=== PATIENT | male | born 1960 | race Caucasian/White ===

== ENCOUNTER 2017-04-08 08:20 | Outpatient (CLI) | payer OTHER ==
--- NOTE | 2017-04-08 11:14 | CT ---
CT ABDOMEN AND PELVIS WITH AND WITHOUT IV CONTRAST: HISTORY: Elevated PSA. FINDINGS: The lung bases are clear. The liver, spleen, pancreas, and adrenal glands are normal. No calcified gallstones are seen. No calculi are seen in the kidneys, ureters, or urinary bladder. No hydroureteronephrosis is noted o n either side. Post contrast imaging demonstrates no renal mass. There is normal contrast excretion into the ureters and urinary bladder. There is mild enlargement of the prostate gland. No free air, free fluid, or lymphadenopathy is seen in the abdomen or pelvis. There are vascular macario cifications without evidence of aneurysmal dilatation of the abdominal aorta. There is a normal appe aring appendix. A fat-containing right inguinal hernia is present. There are degenerative changes i n the spine. IMPRESSION: No CT evidence of urinary tract calculi/obstruction or renal mass. POS: [facility]
[2017-04-08] MEDS ORDERED: ISOVUE-370 76%-LOCM 1 ML ONE (12:18)
== END 2017-04-08 08:21 | disposition home or self-care (01) ==
LOC: CT 08:20
PROVIDERS: ATTEND Urology
DX: R97.20 Elevated prostate specific antigen [PSA] (principal); N32.89 Other specified disorders of bladder
CPT/HCPCS: 74178

== ENCOUNTER 2017-04-11 15:14 | Emergency (ER) | payer OTHER ==
[2017-04-11 15:52] LABS: #Eosinphils 0.2 thou/uL (0.0-0.7); #Lymphocytes 1.3 thou/uL (1.20-3.40); #Monocytes 0.5 thou/uL (0.11-0.59); #Neutrophils 4.7 thou/uL (1.40-6.50); %Basophils 0.6 % (0.0-1.0); %Eosinophils 3.6 % (0.0-10.0); %Neutrophils 69.9 % (42.0-75.0); Hemoglobin 14.4 g/dL (14.0-18.0); Mean Corpuscular HGB CONC 32.1 g/dL (32.0-36.0); Mean Corpuscular Hemoglobin 29.5 pg (27.0-31.0); Mean Corpuscular Volume 91.8 fl (80.0-94.0); Platelet Count 274 thou/uL (130-400); RBC Distribution Width 12.9 % (11.5-14.5); Red Blood Cell (RBC) Count 4.89 mill/uL (4.70-6.10); White Blood Cell (WBC) Count 6.8 thou/uL (4.8-10.8)
[2017-04-11 16:11] LABS: ALT (SGPT) 40 U/L (8-55); AST (SGOT) 35 U/L (5-34); Albumin 4.2 g/dL (3.5-5.0); Alkaline Phosphatase 94 U/L (40-150); Anion Gap 11 mmol/L (10-20); BUN (Urea Nitrogen) 9 mg/dL (8.4-25.7); Bilirubin, Total 0.6 mg/dL (0.2-1.2); Calc. Creatinine Clearance 0 mL/min (70-130); Calcium 9.4 mg/dL (7.8-10.44); Carbon Dioxide 29 mmol/L (22-29); Chloride 107 mmol/L (98-107); Estimated GFR-MDRD 83; Globulin 2.5 g/dL (2.4-3.5); Glucose 111 mg/dL (70-105); Potassium 4.3 mmol/L (3.5-5.1); Protein, Total 6.7 g/dL (6.0-8.3); Sodium 143 mmol/L (136-145)
[2017-04-11 16:16] LABS: CKMB 0.4 ng/mL (0-6.6); Troponin I Less than 0.010 ng/mL (< 0.028)
--- NOTE | 2017-04-13 15:06 | EKG ---
Test Reason : Blood Pressure : / mmHG Vent. Rate : 081 BPM Atrial Rate : 081 BPM P-R Int : 134 ms QRS Dur : 084 ms QT Int : 346 ms P-R-T Axes : 055 001 065 degrees QTc Int : 401 ms Normal sinus rhythm Normal ECG Confirmed by CHRISTEL GONZALES MD ([id number]), news video editor IRINA RIVERA ([id number]) on 04/13/2017 3:06:45 PM Referred By: Confirmed By:CHRISTEL GONZALES MD
== END 2017-04-11 16:47 | disposition home or self-care (01) ==
LOC: ERS 15:14
DX: R55 Syncope and collapse (principal); I10 Essential (primary) hypertension; E11.9 Type 2 diabetes mellitus without complications; E78.5 Hyperlipidemia, unspecified; J45.909 Unspecified asthma, uncomplicated; Z87.891 Personal history of nicotine dependence; Z79.899 Other long term (current) drug therapy
CPT/HCPCS: 80053; 82553; 84484; 85025; 93005

== ENCOUNTER 2017-08-20 10:54 | Outpatient (CLI) | payer BC ==
[2017-08-20 12:40] LABS: Bilirubin Negative (Negative); Blood, Urine Negative (Negative); Clarity CLEAR (Clear); Glucose, Urine (Dipstick) Negative (Negative); Hemoglobin 14.1 g/dL (14.0-18.0); Leukocyte Negative (Negative); Mean Corpuscular HGB CONC 32.7 g/dL (32.0-36.0); Mean Corpuscular Hemoglobin 30.7 pg (27.0-31.0); Mean Corpuscular Volume 93.8 fl (80.0-94.0); Mean Platelet Volume 7.1 fL (7.4-10.4); Nitrite Negative (Negative); Platelet Count 241 thou/uL (130-400); Protein, Urine (Dipstick) Negative (Neg-Trace); RBC Distribution Width 12.2 % (11.5-14.5); Red Blood Cell (RBC) Count 4.59 mill/uL (4.70-6.10); Specific Gravity, Urine 1.016 (1.002-1.036); Urobilinogen 0.2 mg/dL (0.2-1.0); White Blood Cell (WBC) Count 6.1 thou/uL (4.8-10.8); pH, Urine 5.5 (5.0-9.0)
[2017-08-20 12:46] LABS: Bacteria/HPF None Seen HPF (None Seen); Hyaline Casts/LPF 0-3 HYALINE CAST LPF (0-3 Hyaline); Pathc Cast-AUWi Flag 0.14 (0-2.49); RBC/HPF 0-3 HPF (0-3); Squamous Epithelial None Seen HPF (0-3); WBC/HPF 0-3 HPF (0-3)
[2017-08-20 12:52] LABS: INR-International Normal Ratio 1.1; PTT 33.6 SEC (22.9-36.1); Prothrombin Time 14.3 SEC (12.0-14.7)
[2017-08-20 13:02] LABS: ALT (SGPT) 43 U/L (8-55); AST (SGOT) 35 U/L (5-34); Albumin 4.3 g/dL (3.5-5.0); Alkaline Phosphatase 88 U/L (40-150); Anion Gap 11 mmol/L (10-20); BUN (Urea Nitrogen) 12 mg/dL (8.4-25.7); Bilirubin, Total 0.6 mg/dL (0.2-1.2); Calc. Creatinine Clearance 0 mL/min (70-130); Calcium 9.4 mg/dL (7.8-10.44); Carbon Dioxide 28 mmol/L (22-29); Chloride 107 mmol/L (98-107); Estimated GFR-MDRD 76; Globulin 2.2 g/dL (2.4-3.5); Glucose 95 mg/dL (70-105); Potassium 4.8 mmol/L (3.5-5.1); Protein, Total 6.5 g/dL (6.0-8.3); Sodium 141 mmol/L (136-145)
--- NOTE | 2017-08-20 13:14 | RAD ---
2 VIEWS CHEST: Date: 08/20/17 COMPARISON: 04/24/09. HISTORY: Evaluate chest prior to surgery. FINDINGS: There is no pneumothorax or pleural fluid, and no focal consolidation or alveolar edema. Heart and me diastinal contours are grossly unremarkable. IMPRESSION: No acute findings. POS: [facility]
== END 2017-08-20 10:55 | disposition home or self-care (01) ==
LOC: LABBT 10:54
PROVIDERS: ATTEND Urology
DX: Z01.818 Encounter for other preprocedural examination (principal); R97.20 Elevated prostate specific antigen [PSA]
CPT/HCPCS: 71046; 80053; 81001; 85027; 85610; 85730; 87086

== ENCOUNTER 2017-08-20 14:45 | Outpatient (CLI) | payer BC ==
[~2017-08-20 14:45] MED LIST: Gadobenate Dimeglumine 529 MG/1 ML (20ML VIAL) ONE
--- NOTE | 2017-08-20 16:43 | MRI ---
MRI OF PELVIS WITH AND WITHOUT IV CONTRAST (PROSTATE MRI): 08/20/17 HISTORY: 57-year-old male with recently diagnosed prostate cancer, Danyelle score 3+3=6 obtained. Needle biopsy demonstrates prostatic adenocarcinoma in the right mid lateral and right medial zones. COMPARISON: None. TECHNIQUE: Multiplanar and multisequence MRI of the pelvis was performed with and without IV contrast using the prostate protocol. Review at an independent 3D workstation was also performed. FINDINGS: PROSTATE: Prostate measures 5.8 x 3.6 x 4.7 cm with a volume of 51 mL. PERIPHERAL ZONE: There are no focal abnormal areas of diffusion restriction is seen to suggest a malignant process. TRANSITION ZONE: No lentiform area of abnormally decreased T2 signal is identified to suggest a malignant process. No focal arterial enhancing mass is identified. The prostatic capsule is intact. The seminal vesicles are unremarkable. LYMPH NODES: No pelvic lymphadenopathy is seen. BONES: No abnormal areas of signal replacement on the T1 weighted sequences are seen to suggest metastatic d isease. IMPRESSION: PI-RADS 2: Low (clinically significant prostate cancer is unlikely to be present). This study was interpreted in consultation with Dr. Chema Quesada who concurs. POS: [facility]
== END 2017-08-20 14:46 | disposition home or self-care (01) ==
LOC: TBSIIMAG 14:45
PROVIDERS: ATTEND Urology
DX: C61 Malignant neoplasm of prostate (principal)
CPT/HCPCS: 71046; 72197; 80053; 81001; 85027; 85610; 85730; 87086; A9579

== ENCOUNTER 2017-09-03 07:03 | Day surgery (SDC) | payer BC ==
[2017-08-20 11:17] VITALS: BMI 25.8
[2017-09-03] MEDS ORDERED: Sodium Chloride 0.9% 100 ML ONE (07:39)
[2017-09-03] MEDS ORDERED: cefTRIAXone\\ROCEPHIN 1 GM VIAL ONE (07:39)
[2017-09-03] MEDS ORDERED: Levofloxacin 500 mg/D5W 100 ml Premix Bag ONE (07:39)
[2017-09-03] MEDS ORDERED: Fentanyl 100 MCG/2 ML VIAL ONE (09:37)
[2017-09-03] MEDS ORDERED: Dexamethasone 20 MG/5 ML VIAL ONE (12:36)
[2017-09-03] MEDS ORDERED: Lidocaine 1% PF 5 ML VIAL ONE (12:36)
[2017-09-03] MEDS ORDERED: ePHEDrine/0.9% NaCl/PF SYRINGE 50 mg/10 ml ONE (12:36)
[2017-09-03] MEDS ORDERED: PHENYLEPHRINE-NS 100 MCG/ML 10 ML SYRINGE ONE (12:36)
[2017-09-03] MEDS ORDERED: Ondansetron HCl/PF 4 MG/2 ML Vial ONE (12:36)
[2017-09-03] MEDS ORDERED: PROPOFOL 200 MG/20 ML VIAL ONE (12:36)
--- NOTE | 2017-09-04 00:45 | OP ---
DATE OF SERVICE: 09/03/2017 PREOPERATIVE DIAGNOSES: Mr. Saba is a 57-year-old male with clinical T1C prostate cancer, [place] score 3+3, 2 out of 12 cores positive on active surveillance, oncotype #17. POSTOPERATIVE DIAGNOSES: Mr. Saba is a 57-year-old male with clinical T1C prostate cancer, Danyelle score 3+3, 2 out of 12 cores positive on active surveillance, , oncotype #17. PROCEDURE: MRI fusion transrectal ultrasound prostate biopsy 12 core. ANESTHESIA: LMA. COMPLICATIONS: None apparent. DISPOSITION: To recovery room in stable condition. SPECIMEN: Twelve cores for needle biopsy. ESTIMATED BLOOD LOSS: Minimal. INDICATIONS FOR THE PROCEDURE AND HISTORY: Mr. Saba is a 57-year-old male with clinical T1C prostate cancer, Danyelle sum 3+3, 2 out of 12 cores positive in the right mid medial right mid lateral, with Oncotype number of 17 demonstrating very low risk disease. He is currently on active surveillance. Recent PSA is 4.2, presents today for MRI fusion biopsy. Risks and complications and indications reviewed including, but not limited to, bleeding, pain, infection, injury to adjacent organs, urosepsis. All questions were answered to his satisfaction and he desired to proceed. DESCRIPTION OF THE PROCEDURE: After an informed consent was signed, the patient was taken to the operating room, placed in supine position and LMA anesthesia was administered. The patient was then placed in a left lateral decubitus position. Using a BK ultrasound probe. Ultrasound probe was placed per rectum. Using UroNav MRI fusion technology, we fused the ultrasound images of the prostate to the MRI images of the prostate. After appropriate calibration, we obtained 12 needle standard course. He did not have a targeted lesion to be concerned. We are obtaining a 12 core needle biopsy for restaging for his active surveillance. His prostate volume was calculated to be 42.9 grams with urethral length of 4.6 with a 4.9, height of 3.4. He tolerated the procedure well and transported to the recovery room in stable condition. He will be discharged home. He will finish his standard of antibiotic regimen of ciprofloxacin, short course of [place] was provided. He will follow up with ca at 2:45 to review pathology. LUIS ALFREDO
== END 2017-09-03 13:22 | disposition home or self-care (01) ==
LOC: SDC 07:03
PROVIDERS: ATTEND Urology
PROC: 0VB03ZX Excision of Prostate, Percutaneous Approach, Diagnostic (ICD-10-PCS; principal; 2017-09-03)
DX: C61 Malignant neoplasm of prostate (principal); Z79.899 Other long term (current) drug therapy
CPT/HCPCS: 88305; J0696; J1100; J1956; J2001; J2405; J2704; J3010; J7050

== ENCOUNTER 2018-09-15 09:31 | Outpatient (CLI) | payer BC ==
--- NOTE | 2018-09-15 14:18 | MRI ---
MRI PROSTATE WITHOUT AND WITH CONTRAST: Date; 09/15/18 COMPARISON: 08/20/17. HISTORY: Prostate cancer diagnosed by biopsy 1.5 years ago. TECHNIQUE: Multiplanar, multisequence MR images were obtained of the prostate without and with contrast. FINDINGS: There is mild hypertrophy of the central gland consistent with mild BPH. No low T2 signal lesion is s een throughout the prostate that is suspicious. No restricted diffusion is seen in the peripheral zon e and no low signal is seen on the ADC map in the peripheral zone of the prostate. Seminal vesicles are intact. Neurovascular bundles are intact. No pelvic adenopathy is seen. No marro w signal abnormality is present. IMPRESSION: PI-RADS Category 2 - Low likelihood that a clinically significant cancer is present.
== END 2018-09-15 09:32 | disposition home or self-care (01) ==
LOC: TBSIIMAG 09:31
PROVIDERS: ATTEND Urology
DX: C61 Malignant neoplasm of prostate (principal); R97.20 Elevated prostate specific antigen [PSA]
CPT/HCPCS: 72197

== ENCOUNTER 2018-11-05 09:15 | Outpatient (CLI) | payer BC ==
--- NOTE | 2018-11-05 11:35 | RAD ---
RIGHT KNEE 4 VIEWS: Date: 11/05/18 INDICATION: Pain, edema. FINDINGS: There is no evidence of fracture or dislocation. Mild osteophytosis was present. No significant joint capsular distention. IMPRESSION: No acute osseous abnormality of the right knee. POS: [facility]
--- NOTE | 2018-11-05 11:36 | RAD ---
BILATERAL FRONTAL VIEW OF KNEES STANDING POSITION: Date: 11/05/18 INDICATION: Pain, edema. FINDINGS: There is no acute osseous abnormality on the basis of the provided frontal view. Mild osteophytosis i s present. IMPRESSION: No acute osseous abnormality of the knees evident by frontal standing view. POS: [facility]
== END 2018-11-05 09:16 | disposition home or self-care (01) ==
LOC: SCSRAD 09:15
PROVIDERS: ATTEND Family Medicine
DX: M25.561 Pain in right knee (principal)
CPT/HCPCS: 36415; 87389

== ENCOUNTER 2018-11-12 06:16 | Day surgery (SDC) | payer BC ==
[2018-11-03 10:35] VITALS: BMI 28.0
[2018-11-12] MEDS ORDERED: cefTRIAXone\\ROCEPHIN 2 GM VIAL ONE (06:28)
[2018-11-12] MEDS ORDERED: Levofloxacin 500 mg/D5W 100 ml Premix Bag ONE (06:28)
[2018-11-12] MEDS ORDERED: Sodium Chloride 0.9% 100 ML ONE (06:28)
[2018-11-12] MEDS ORDERED: Propofol 500 MG/50 ML VIAL ONE (06:57)
[2018-11-12] MEDS ORDERED: Fentanyl 100 MCG/2 ML VIAL ONE (06:57)
[2018-11-12] MEDS ORDERED: Propofol 1,000 MG/100 ML VIAL IV ONE (06:57)
--- NOTE | 2018-11-12 10:28 | OP ---
DATE OF PROCEDURE: 11/12/2018 PREOPERATIVE DIAGNOSES: 1. A 58-year-old male with clinical T1c prostate cancer, [place] score 3+3, 2 out of 12 cores positive, PSA of 3.08. 2. Staging MRI with no suspicious lesions. POSTOPERATIVE DIAGNOSES: 1. A 58-year-old male with clinical T1c prostate cancer, [place] score 3+3, 2 out of 12 cores positive, PSA of 3.08. 2. Staging MRI with no suspicious lesions. PROCEDURES PERFORMED: 1. Transrectal ultrasound. 2. Volume study. 3. 12-core needle biopsy staging. ANESTHESIA: TIVA. COMPLICATIONS: None apparent. DISPOSITION: To recovery room in stable condition. SPECIMEN: 12 needle core biopsy of the prostate. INDICATIONS FOR PROCEDURE AND HISTORY: Mr. Saba is a 58-year-old male with clinical T1c prostate cancer, low volume, Oncotype #17 low risk disease on surveillance. He presents today for annual prostate surveillance prostate biopsy. MRI negative for targetable lesion. Indications, risks, and complications including sepsis, blood per rectum, hematuria warranting secondary procedure was reviewed with the patient in detail and he desired to proceed. DESCRIPTION OF PROCEDURE: After an informed consent obtained, he was provided broad-spectrum antibiotics and taken to the operating room. The patient placed in the lateral decubitus position and a transrectal ultrasound probe was passed. Digital rectal exam again demonstrates no evidence of nodules or issues of concern. We did a volume study demonstrating 47.8 g, no lesions seen. His ureteral length was 4.6, width was 4.9, height was 4.0. 12 needle core biopsy of the prostate was performed in a standard fashion. He tolerated the procedure uneventfully. He was discharged with ciprofloxacin for 3 days and Flomax #20 one p.o. daily. He has as a baseline no significant obstructive urinary symptoms, however, in the periprocedural period, I will provide short course of Flomax. Appointment with me on 12/02 to review pathology. Job ID: [id number] [facility]
== END 2018-11-12 09:15 | disposition home or self-care (01) ==
LOC: SDC 06:16
PROVIDERS: ATTEND Urology
PROC: 0VB03ZX Excision of Prostate, Percutaneous Approach, Diagnostic (ICD-10-PCS; principal; 2018-11-12)
DX: C61 Malignant neoplasm of prostate (principal); I10 Essential (primary) hypertension; E11.9 Type 2 diabetes mellitus without complications; G47.33 Obstructive sleep apnea (adult) (pediatric); J45.909 Unspecified asthma, uncomplicated; Z79.899 Other long term (current) drug therapy; Z87.891 Personal history of nicotine dependence; Z88.8 Allergy status to other drugs, medicaments and biological substances
CPT/HCPCS: 88305; J0696; J1956; J2704; J3010; J3490

== ENCOUNTER 2019-05-27 08:51 | Outpatient (CLI) | payer BC ==
[2019-05-27 11:13] LABS: #Eosinphils 0.3 thou/uL (0.0-0.7); #Lymphocytes 1.6 thou/uL (1.20-3.40); #Monocytes 0.5 thou/uL (0.11-0.59); #Neutrophils 3.7 thou/uL (1.40-6.50); %Basophils 0.3 % (0.0-1.0); %Eosinophils 4.8 % (0.0-10.0); %Lymphocytes 26.3 % (21.0-51.0); %Monocytes 8.3 % (0.0-10.0); %Neutrophils 60.3 % (42.0-75.0); Hemoglobin 14.3 g/dL (14.0-18.0); Mean Corpuscular Hemoglobin 31.4 pg (27.0-31.0); Mean Corpuscular Volume 92.4 fL (78.0-98.0); Mean Platelet Volume 7.8 fL (7.4-10.4); Platelet Count 265 thou/uL (130-400); RBC Distribution Width 11.9 % (11.5-14.5); Red Blood Cell (RBC) Count 4.55 mill/uL (4.70-6.10); White Blood Cell (WBC) Count 6.2 thou/uL (4.8-10.8)
[2019-05-27 11:35] LABS: Anion Gap 11 mmol/L (10-20); BUN (Urea Nitrogen) 11 mg/dL (8.4-25.7); Calc. Creatinine Clearance 0 mL/min (70-130); Carbon Dioxide 26 mmol/L (23-31); Chloride 108 mmol/L (98-107); Estimated GFR-MDRD 80; Glucose 98 mg/dL (80-115); Potassium 4.2 mmol/L (3.5-5.1); Sodium 141 mmol/L (136-145)
== END 2019-05-27 08:52 | disposition home or self-care (01) ==
LOC: LABBT 08:51
PROVIDERS: ATTEND Surgery
DX: Z01.812 Encounter for preprocedural laboratory examination (principal); K42.9 Umbilical hernia without obstruction or gangrene
CPT/HCPCS: 80048; 85025

== ENCOUNTER 2019-07-29 06:36 | Outpatient (CLI) | payer BC, OTHER ==
[2019-07-29 20:12] LABS: SARS-CoV-2 MS2 Positive; SARS-CoV-2 N Gene Negative; SARS-CoV-2 S Gene Negative; SARS-CoV-2 orf1ab Negative
== END 2019-07-29 06:37 | disposition home or self-care (01) ==
LOC: LABBT 06:36
PROVIDERS: ATTEND Surgery
DX: Z01.812 Encounter for preprocedural laboratory examination (principal); Z11.59 Encounter for screening for other viral diseases; K42.9 Umbilical hernia without obstruction or gangrene
CPT/HCPCS: 87635; U0003

== ENCOUNTER 2019-07-31 09:13 | Day surgery (SDC) | payer BC ==
[2019-07-29 10:39] VITALS: BMI 29.1
[2019-07-31] MEDS ORDERED: Fentanyl 100 MCG/2 ML VIAL ONE (11:00)
[2019-07-31] MEDS ORDERED: Bupivacaine 0.25% HCL 30 ML VIAL ONE (11:09)
[2019-07-31] MEDS ORDERED: Lidocaine 1% w/Epinephrine 1:100K 20 ML VIAL ONE (11:09)
[2019-07-31] MEDS ORDERED: Famotidine/PF 20 mg/2ml Vial ONE (11:21)
[2019-07-31] MEDS ORDERED: Ondansetron PF 4 MG/2 ML Vial ONE (13:54)
[2019-07-31] MEDS ORDERED: PROPOFOL 200 MG/20 ML VIAL ONE (13:54)
[2019-07-31] MEDS ORDERED: EPHEDRINE 25 MG/5 ML SYRINGE ONE (13:54)
[2019-07-31] MEDS ORDERED: Dexamethasone 20 MG/5 ML VIAL ONE (13:54)
[2019-07-31] MEDS ORDERED: Lidocaine 1% PF 5 ML VIAL ONE (13:54)
--- NOTE | 2019-07-31 14:49 | OP ---
DATE OF PROCEDURE: 07/31/2019 PREOPERATIVE DIAGNOSIS: Umbilical hernia. POSTOPERATIVE DIAGNOSIS: Umbilical hernia. PROCEDURE PERFORMED: Open umbilical hernia repair with mesh, Ventralex ST small. ANESTHESIA: General. ESTIMATED BLOOD LOSS: Minimal. COMPLICATIONS: None. SPECIMENS: None. FINDINGS: Umbilical hernia. DESCRIPTION OF PROCEDURE: The patient was taken to the operating room and laid supine on the operating room table. After general anesthetic was obtained, the abdomen was shaved, prepped, and draped in sterile fashion. A curved incision was made below the umbilicus. Cautery was used to dissect down to and score the fascia and umbilical stalk was amputated from the fascia, exposing the umbilical defect. The edges of the defect were freshened and the preperitoneal space was bluntly dissected through the defect. The small Ventralex ST mesh was brought into the sterile field, placed in an underlay position in the preperitoneal space as tails laid out lateral. Tails were sewn via U-stitch of permanent braided suture to the edges of the fascia. The tails were then cut at the level of fascia and the fascia was closed loosely over the mesh using permanent braided suture. The wound was irrigated. Local anesthetic was applied. The umbilical stalk was tacked back down using 3-0 Vicryl. Skin was closed using running 4-0 Monocryl and Dermabond. The patient was sent to Recovery in stable condition. All instrument counts, needle counts, and lap counts were correct. Job ID: [id number]
== END 2019-07-31 14:17 | disposition home or self-care (01) ==
LOC: SDC 09:13
PROVIDERS: ATTEND Surgery
PROC: 0WUF0JZ Supplement Abdominal Wall with Synthetic Substitute, Open Approach (ICD-10-PCS; principal; 2019-07-31)
DX: K42.9 Umbilical hernia without obstruction or gangrene (principal); E11.9 Type 2 diabetes mellitus without complications; I10 Essential (primary) hypertension; K21.9 Gastro-esophageal reflux disease without esophagitis; J45.909 Unspecified asthma, uncomplicated; G47.33 Obstructive sleep apnea (adult) (pediatric); Z79.51 Long term (current) use of inhaled steroids; Z79.899 Other long term (current) drug therapy; Z88.8 Allergy status to other drugs, medicaments and biological substances
CPT/HCPCS: J0690; J1100; J2001; J2405; J2704; J3010; S0020; S0028

== ENCOUNTER 2019-12-16 09:00 | Outpatient (CLI) | payer BC ==
--- NOTE | 2019-12-17 08:29 | MRI ---
MR OF THE PELVIS WITH AND WITHOUT CONTRAST INDICATION: 59-year-old male with history of prostate cancer status post prostate biopsy several week s ago COMPARISON: Prior MRI of the pelvis utilizing a prostate cancer specific protocol dated September 15, 2018. TECHNIQUE: Multiplanar, multisequence MR images were obtained of the pelvis with and without IV contr ast. 20 cc of MultiHance was utilized for the examination. The examination was reviewed on a separate Contur 3-D workstation for multiplanar metric evaluation. FINDINGS: Prostate size: The prostate measured 5.3 x 3.9 x 4.2cm. 46.51 cc. Peripheral zone: No area of restricted diffusion is seen within the peripheral zone. Central zone: No suspicious signal abnormality or focal lesion. Neural vasculature: No evidence of neurovascular invasion Regional lymphadenopathy: None Dynamic contrast enhancement: Negative. Osseous structures: No suspicious osseous lesion is identified. Additional findings: Bilateral fat-containing inguinal hernias. Colonic diverticulosis of the sigmoid colon.. IMPRESSION: 1. PIRADS 2- Low (clinically significant cancer is unlikely to be present.)
== END 2019-12-16 09:01 | disposition home or self-care (01) ==
LOC: TBSIIMAG 09:00
PROVIDERS: ATTEND Urology
DX: C61 Malignant neoplasm of prostate (principal)
CPT/HCPCS: 72197

== ENCOUNTER 2022-01-10 13:28 | Outpatient (CLI) | payer BC ==
[~2022-01-10 13:28] MED LIST changes: -Gadobenate Dimeglumine 529 MG/1 ML (20ML VIAL) ONE; +Magnevist 469MG/ML 20 ML VIAL ONE
== END 2022-01-10 13:29 | disposition home or self-care (01) ==
LOC: TBSIIMAG 13:28
PROVIDERS: ATTEND Urology
DX: C61 Malignant neoplasm of prostate (principal)
CPT/HCPCS: 72197; 82565; A9579

== ENCOUNTER 2022-01-29 06:25 | Day surgery (SDC) | payer BC ==
[2022-01-26 12:14] VITALS: BMI 28.7
[2022-01-29] MEDS ORDERED: Sodium Chloride 0.9% 100 ML ONE (07:28)
[2022-01-29] MEDS ORDERED: cefTRIAXone\\ROCEPHIN 2 GM VIAL ONE (07:28)
[2022-01-29] MEDS ORDERED: FENTANYL 50 MCG/ML 1 ML VIAL ONE (08:40)
[2022-01-29] MEDS ORDERED: fentaNYL PF 100 MCG/2 ML SYRINGE ONE (08:40)
[2022-01-29] MEDS ORDERED: Levofloxacin 500 mg/D5W 100 ml Premix Bag ONE (08:46)
[2022-01-29] MEDS ORDERED: PROPOFOL 200 MG/20 ML VIAL ONE (08:57)
[2022-01-29] MEDS ORDERED: Ondansetron PF 4 MG/2 ML Vial ONE (08:57)
[2022-01-29] MEDS ORDERED: Ketorolac Tromethamine 30 MG/ML VIAL ONE (08:57)
[2022-01-29] MEDS ORDERED: Dexamethasone 20 MG/5 ML VIAL ONE (08:57)
[2022-01-29] MEDS ORDERED: ePHEDrine 50 MG/ML VIAL ONE (08:57)
[2022-01-29] MEDS ORDERED: Tamsulosin HCl 0.4 MG CAP ONE (09:45)
[2022-01-29] MEDS ORDERED: Phenazopyridine HCl 100 MG TAB ONE (09:45)
== END 2022-01-29 11:04 | disposition home or self-care (01) ==
LOC: SDC 06:25
PROVIDERS: ATTEND Urology
PROC: 0VB03ZX Excision of Prostate, Percutaneous Approach, Diagnostic (ICD-10-PCS; principal; 2022-01-29)
DX: N40.1 Benign prostatic hyperplasia with lower urinary tract symptoms (principal); R39.11 Hesitancy of micturition; E11.9 Type 2 diabetes mellitus without complications; I10 Essential (primary) hypertension; K21.9 Gastro-esophageal reflux disease without esophagitis; G47.33 Obstructive sleep apnea (adult) (pediatric); E78.5 Hyperlipidemia, unspecified; J45.909 Unspecified asthma, uncomplicated; Z85.46 Personal history of malignant neoplasm of prostate; Z86.16 Personal history of COVID-19; Z87.891 Personal history of nicotine dependence; Z79.899 Other long term (current) drug therapy; Z88.8 Allergy status to other drugs, medicaments and biological substances
CPT/HCPCS: G0416; J0696; J1100; J1885; J1956; J2405; J2704; J3010; J3490

== ENCOUNTER 2022-05-31 19:00 | Outpatient (CLI) | payer BC | END 2022-05-31 19:01 | disposition home or self-care (01) | LOC: SLEEPLAB 19:00 | PROVIDERS: ATTEND Family Medicine | DX: G47.33 Obstructive sleep apnea (adult) (pediatric) (principal) | CPT/HCPCS: 95811 ==